=== PATIENT | female | born 2000 | race Caucasian/White ===

== ENCOUNTER 2021-06-13 17:42 | Emergency (ER) | payer OTHER, SELFPAY ==
--- NOTE | 2021-06-13 17:46 | ED.URI ---
HPI - URI/Sore Throat General Chief Complaint: Upper Respiratory Infection Stated Complaint: sore throat Time Seen by Provider: 06/13/21 17:46 Source: patient and RN notes reviewed History of Present Illness HPI Narrative: Patient is a 21-year-old female who presents the urgent care with complaints of a sore throat and postnasal drainage. Patient states is been ongoing for approximately the last week and she has been taking her daily Singulair as well as Zyrtec. Patient has been Covid vaccinated and denies of any fever, nausea, vomiting, cough. Denies of any exposure to Covid or strep. No other acute complaints. No acute distress noted. Patient aware of the plan of care. Some parts of this dictation were generated by voice recognition software and may contain typographical and/or grammatical inaccuracies. Related Data Home Medications Medication Instructions Recorded Confirmed Zyrtec 06/13/21 buspirone 06/13/21 Allergies Allergy/AdvReac Type Severity Reaction Status Date / Time cephalexin Allergy Unknown Verified 06/13/21 17:53 Penicillins Allergy Unknown Verified 06/13/21 17:53 Review of Systems Review of Systems: CONSTITUTIONAL: Denies fever, chills, or sweats. EYES: Denies visual changes, redness, or discharge. ENT: Denies rhinorrhea, congestion, otalgia. Reports of sore throat and postnasal drainage CARDIOVASCULAR: Denies chest pain, palpitations, or edema. RESPIRATORY: Denies cough or dyspnea. GASTROINTESTINAL: Denies abdominal pain, nausea, vomiting, or diarrhea. GENITOURINARY: Denies dysuria or hematuria. SKIN: Denies rash or itching. MUSCULOSKELETAL: Denies back pain, joint pain, or myalgia. NEUROLOGIC: Denies headache, numbness, or weakness. All other systems reviewed are negative, except as documented in HPI. PMFSH Comments At the time of my signature, I reviewed and agree with the nursing past medical, surgical, social, and family history. There is no relevant family history pertinent to the patient complaint. Exam Narrative: GENERAL: This is a well-nourished, well-developed patient, in no apparent distress. HEAD: normocephalic, atraumatic. EYES: PERRL. Sclera clear/white. Vision is grossly intact. EARS: External ears normal, auditory canals clear and without drainage, TMs normal without perforation. Hearing grossly intact. NOSE: External nose normal with no obvious nasal discharge, nares without redness, no rhinorrhea. THROAT: Mucous membranes moist, posterior pharynx clear. Moderate postnasal drainage NECK: Neck supple, non-tender without lymphadenopathy CARDIOVASCULAR: Regular rate and rhythm without murmurs, gallops, or rubs. RESPIRATORY: Clear to auscultation. Breath sounds equal bilaterally. No wheezes, rales, or rhonchi. SKIN: warm, intact with no suspicious lesions or rash, good texture and turgor. NEURO: awake, alert, and oriented to person, place and time. There were no obvious focal neurologic abnormalities. EXTREMITIES: No clubbing, cyanosis, or edema. Course Vital Signs Vital signs: Vital Signs Temperature 97.5 F L 06/13/21 17:54 Pulse Rate 50 L 06/13/21 17:54 Respiratory Rate 18 06/13/21 17:54 Blood Pressure 130/73 06/13/21 17:54 Pulse Oximetry 100 06/13/21 17:54 Temperature 97.5 F L 06/13/21 17:54 Pulse Rate 50 L 06/13/21 17:54 Respiratory Rate 18 06/13/21 17:54 Blood Pressure 130/73 06/13/21 17:54 Pulse Oximetry 100 06/13/21 17:54 Reviewed MDM - URI/Sore Throat MDM Narrative Medical decision making narrative: Reviewed lab results with the patient. She is aware that strep swab was negative. Educated patient on culture we will call within 72 hours if culture is positive and antibiotics are necessary. Symptoms are likely due to at the common cold and chronic allergies. Continue your daily Singulair. Use Flonase nasal spray daily. Use a humidifier at night. Use Tylenol/ibuprofen as needed for pain. If you develop any increase in symptoms
[2021-06-13 17:54] VITALS: BP 130/73; PULSE 50; RESP 18; TEMP 36.4; O2SAT 100
== END 2021-06-13 18:12 | disposition home or self-care (01) ==
PROVIDERS: Emergency Provider Nurse Practitioner Family
DX: J02.9 Acute pharyngitis, unspecified (principal)
CPT/HCPCS: 87081; 87880; 99213; G0463

== ENCOUNTER 2022-05-13 19:53 | Emergency (ER) | payer OTHER, BC, SELFPAY ==
[2022-05-13 20:02] VITALS: BP 142/91; PULSE 104; RESP 20; TEMP 36.7; O2SAT 99
--- NOTE | 2022-05-13 20:12 | ED.WOUNDLAC ---
HPI - Wound/Laceration General Chief Complaint: Wound/Laceration <FADI Marr Last Filed: 05/14/22 01:50> Stated Complaint: Laceration <FADI Marr Last Filed: 05/14/22 01:50> Time Seen by Provider: 05/13/22 20:06 <FADI Marr Last Filed: 05/14/22 01:50> History of Present Illness HPI narrative: Patient is a [id number] 22-year-old female here for evaluation of a laceration to her right thumb. Patient states this was sustained from a bread knife while she was at work that accidentally sliced across her hand about 30 minutes prior to arrival Tetanus shot is up-to-date as of several months ago.No numbness or tingling in the hand, able to move finger without issue. <FADI Marr Last Filed: 05/14/22 01:50> Related Data Home Medications: Home Medications Medication Instructions Recorded Confirmed buspirone 10 mg tablet mg 05/13/22 05/13/22 levonorgestrel 0.15 mg-ethinyl 05/13/22 estradiol 30 mcg tablets,3 mos pack(91) lisdexamfetamine 20 mg capsule mg 05/13/22 (Vyvanse) montelukast 10 mg tablet mg 05/13/22 <FADI Marr Last Filed: 05/14/22 01:50> Allergies/Adverse Reactions: Allergies Allergy/AdvReac Type Severity Reaction Status Date / Time cephalexin Allergy Unknown Verified 05/13/22 20:05 Penicillins Allergy Unknown Verified 05/13/22 20:05 <FADI Marr Last Filed: 05/14/22 01:50> Review of Systems Review of Systems: Gen: Denies fevers or chills Eyes: Denies eye pain or visual change ENT: Denies congestion Respiratory: Denies shortness of breath or cough CV: Denies chest pain or palpitations GI: Reports abdominal pain nausea, emesis or diarrhea denies burning, urgency, frequency or hematuria Musculoskeletal: Denies back pain or muscle pain Neuro: Denies numbness, tingling, weakness or focal weakness Skin: Reports laceration. 10 point review of systems negative, other than as per history of present illness, past medical history and other positives and review of systems <Vanessa Snider PA-C - Last Filed: 05/14/22 01:50> Exam Narrative: Gen: Alert, oriented, no acute distress Eyes: EOMI, no icterus Pulm: Respirations even and unlabored, symmetric thorax expansion, no audible stridor or visible cyanosis CV: Regular rate per telemetry GI: No distension, no voluntary/involuntary guarding Neuro: AOx4, moves all extremities without apparent difficulty or weakness, follows commands MSK: Full range of motion in thumb. Sensation intact distal to injury. Skin: Patient has a 1 and half centimeter linear laceration to the palmar aspect of the base of her right thumb with no active bleeding. Psych: Normal mood/affect, insight/judgement good, adequate fund of knowledge, recent/remote memory intact <Vanessa Snider PA-C - Last Filed: 05/14/22 01:50> Course JIG BOX OPERATOR/PA Physician Supervision For this patient encounter, I reviewed the JIG BOX OPERATOR or PA documentation, treatment plan, and medical decision making <Marcial Campa MD - Last Filed: 05/14/22 02:17> Vital Signs Vital signs: Vital Signs Temperature 98.1 F 05/13/22 20:02 Pulse Rate 104 H 05/13/22 20:02 Respiratory Rate 20 05/13/22 20:02 Blood Pressure 142/91 H 05/13/22 20:02 Pulse Oximetry 99 05/13/22 20:02 Oxygen Delivery Room Air 05/13/22 20:02 Temperature 98.1 F 05/13/22 20:02 Pulse Rate 99 05/13/22 21:01 Respiratory Rate 16 05/13/22 21:01 Blood Pressure 132/84 05/13/22 21:01 Pulse Oximetry 100 05/13/22 21:01 Oxygen Delivery Room Air 05/13/22 20:02 <Vanessa Snider PA-C - Last Filed: 05/14/22 01:50> Vital Signs Temperature 98.1 F 05/13/22 20:02 Pulse Rate 104 H 05/13/22 20:02 Respiratory Rate 20 05/13/22 20:02 Blood Pressure 142/91 H 05/13/22 20:02 Pulse Oximetry 99 05/13/22 20:02 Oxygen Delivery Room Air
[2022-05-13] MEDS: LIDOCAINE HCL 1% LOCAL INJ 20 ML VIAL (20:31)
[2022-05-13 21:01] VITALS: BP 132/84; PULSE 99; RESP 16; O2SAT 100
== END 2022-05-13 21:03 | disposition home or self-care (01) ==
PROVIDERS: Emergency Provider Emergency Medicine
DX: S61.011A Laceration without foreign body of right thumb without damage to nail, initial encounter (principal); W26.0XXA Contact with knife, initial encounter
CPT/HCPCS: 12001; 99282

== ENCOUNTER 2022-05-20 16:11 | Emergency (ER) | payer OTHER, BC, SELFPAY ==
[2022-05-20 16:14] VITALS: BP 124/80; PULSE 86; RESP 20; TEMP 36.6; O2SAT 100
--- NOTE | 2022-05-20 17:16 | ED.GENADULT ---
HPI - General Adult General Chief complaint: Unspecified Stated complaint: suture removal Time Seen by Provider: 05/20/22 17:03 History of Present Illness HPI narrative: 22-year-old female presents emergency room for suture removal. No other complaints Related Data Home Medications Medication Instructions Recorded Confirmed buspirone 10 mg tablet mg 05/13/22 05/13/22 levonorgestrel 0.15 mg-ethinyl 05/13/22 estradiol 30 mcg tablets,3 mos pack(91) lisdexamfetamine 20 mg capsule mg 05/13/22 (Vyvanse) montelukast 10 mg tablet mg 05/13/22 Allergies Allergy/AdvReac Type Severity Reaction Status Date / Time cephalexin Allergy Unknown Verified 05/20/22 17:04 Penicillins Allergy Unknown Verified 05/20/22 17:04 Review of Systems Review of Systems: CONSTITUTIONAL: Denies fever, chills, or sweats. EYES: Denies visual changes, redness, or discharge. ENT: Denies rhinorrhea, congestion, sore throat, or otalgia. CARDIOVASCULAR: Denies chest pain, palpitations, or edema. RESPIRATORY: Denies cough or dyspnea. GASTROINTESTINAL: Denies abdominal pain, nausea, vomiting, or diarrhea. GENITOURINARY: Denies dysuria or hematuria. SKIN: Denies rash or itching. MUSCULOSKELETAL: Denies back pain, joint pain, or myalgia. NEUROLOGIC: Denies headache, numbness, dizziness, or weakness. PSYCHIATRIC: Denies anxiety or depression. Exam Narrative: GENERAL: Well-appearing, well-nourished, no physical limitations, and in no acute distress. HEAD: Normocephalic, atraumatic. EYES: Conjunctivae normal, PERRLA and EOMI. CHEST: Clear to auscultation. No respiratory distress. No wheezes rales or rhonchi. No tenderness. HEART: Regular rate and rhythm. No murmur heard. Normal peripheral pulses. EXTREMITIES: Normal range of motion. No edema. No clubbing or cyanosis SKIN: 2 cm well approximated laceration with 4 intact sutures to the base of the right thumb. No surrounding erythema, swelling, tenderness or purulent drainage. NEURO: No focal deficits. Alert and oriented x3. MAEW. CN's II-XI intact bilaterally, normal gait PSYCH: Cooperative. Normal mood and affect. Course Vital Signs Vital signs: Vital Signs Temperature 36.6 C 05/20/22 16:14 Pulse Rate 86 05/20/22 16:14 Respiratory Rate 05/20/22 16:14 Blood Pressure 124/80 05/20/22 16:14 Pulse Oximetry 100 05/20/22 16:14 Oxygen Delivery Room Air 05/20/22 16:14 Temperature 36.6 C 05/20/22 16:14 Pulse Rate 86 05/20/22 16:14 Respiratory Rate 20 05/20/22 16:14 Blood Pressure 124/80 05/20/22 16:14 Pulse Oximetry 100 05/20/22 16:14 Oxygen Delivery Room Air 05/20/22 16:14 Procedures Other Procedure Procedure 1: Other Procedure: 4 intact sutures removed. Patient tolerated procedure well Medical Decision Making Vital Signs Vital Signs: Vital Signs Temperature 36.6 C 05/20/22 16:14 Pulse Rate 86 05/20/22 16:14 Respiratory Rate 05/20/22 16:14 Blood Pressure 124/80 05/20/22 16:14 Pulse Oximetry 100 05/20/22 16:14 Oxygen Delivery Room Air 05/20/22 16:14 Temperature 36.6 C 05/20/22 16:14 Pulse Rate 86 05/20/22 16:14 Respiratory Rate 05/20/22 16:14 Blood Pressure 124/80 05/20/22 16:14 Pulse Oximetry 100 05/20/22 16:14 Oxygen Delivery Room Air 05/20/22 16:14 Discharge Plan Discharge Clinical Impression: Encounter for removal of sutures Patient Disposition: Home, Self-Care Condition: Stable Instructions: Antibiotic Form, Stitches Removal (ED) Prescriptions: No Action buspirone 10 mg tablet montelukast 10 mg tablet levonorgestrel-ethinyl estrad 0.15 mg-30 mcg (91) tablets,dose pack,3 month Vyvanse 20 mg capsule Follow-up/Referrals: PHYSICIAN NOT ON STAFF,NONSTAFF [Primary Care Provider] - Time of Disposition: :19
== END 2022-05-20 17:28 | disposition home or self-care (01) ==
LOC: ANHED 17:20
PROVIDERS: Emergency Provider Nurse Practitioner Family
DX: Z48.02 Encounter for removal of sutures (principal)
CPT/HCPCS: 99281